=== PATIENT | female | born 1995 | race Caucasian/White ===

== ENCOUNTER 2017-02-26 09:39 | Inpatient (IN) | payer OTHER ==
[2017-02-26] MEDS ORDERED: Lactated Ringer's 1,000 ML IV SCH (10:15)
[2017-02-26] MEDS ORDERED: Penicillin G 5 Million Unit Vial IVPB ONE (10:15)
--- NOTE | 2017-02-26 10:22 | OBADHP ---
Datetime: 02/26/2017 10:15 Admit Comment, IP Provider: chief complaint-contractions HPI 22 y/o at 39.2 wga with c/o contractions since 6 am.Patient denies vaginal bleeding or lo ss of fluid course uncomplicated PMH denies PSH denies obgyn hx ; nvdx1 Social hx denies tobacco,alcohol or illicit drug use Exam see exam section A/P 22 y/o at 39.2 wga in labor.GBS neg. -admit -see prders Pelvic Type - PN: Adequate Extremities - PN: Normal Abdomen - PN: Normal Back - PN: Normal Lungs - PN: Normal Heart - PN: Normal Neurologic - PN: Normal General - PN: Normal Weight - Estimated: 3000 Presentation-Admit: Vertex Contraction Comments Provider: irregular Gestation - Est Wks by US: 39.2 IP Hx Assessment: The History has been Reviewed and is Current Vital Signs Provider: Reviewed; Within Normal Limits IP Chief Complaint: Uterine contractions FHR Category Provider Fetus A: Category I Dilatation, Provider: 10 Effacement, Provider: 100 Station, Provider: 0 Genitourinary Exam: Normal DTRs - PN: Normal EGA AdmitDate IP: 39.2 IP Adm Impression: Term, intrauterine ; Active labor IP Admit Plan: Admit to unit; Initiate labor protocol
[2017-02-26] MEDS ORDERED: Lidocaine 2% Inj (20ml) ONE (10:30)
[2017-02-26] MEDS ORDERED: Benzocaine/Menthol 20%-0.5% Topical Spray (60 ml) TOP PRN (10:36)
[2017-02-26 11:21] LABS: BASO % 0.3 % (0.0-2.0); EOS # 0.3 K/uL (0.0-0.7); EOS % 2.3 % (0.0-4.0); HEMOGLOBIN 13.9 g/dL (11.0-16.0); LYMPH # 2.7 K/uL (1.0-4.3); LYMPH % 21.3 % (20.0-40.0); MEAN CELL VOLUME 87.2 fL (81.0-99.0); MEAN CORPUSCULAR HEMOGLOBIN 28.8 pg (27.0-31.0); MEAN PLATELET VOLUME 8.8 fL (7.2-11.7); MONO # 0.6 K/uL (0.0-0.8); MONO % 4.7 % (0.0-10.0); NEUT % 71.4 % (50.0-75.0); RBC 4.82 Mil/uL (3.80-5.20); RED CELL DISTRIBUTION WIDTH 14.7 % (11.5-14.5); WHITE BLOOD COUNT 12.6 K/uL (4.8-10.8)
[2017-02-26 11:27] LABS: SQUAMOUS EPITHIAL 19 /hpf (0-5); URINE BACTERIA OCC (<OCC); URINE BILIRUBIN NEGATIVE (NEGATIVE); URINE BLOOD NEGATIVE (NEGATIVE); URINE CLARITY Hazy (Clear); URINE COLOR Yellow (YELLOW); URINE GLUCOSE (UA) NORMAL (Normal); URINE LEUKOCYTE ESTERASE 3+ Leu/uL (Negative); URINE NITRATE NEGATIVE (NEGATIVE); URINE PROTEIN NEGATIVE (NEGATIVE); URINE UROBILINOGEN NORMAL mg/dL (0.2-1.0)
--- NOTE | 2017-02-26 16:05 | OBDS ---
DELIVERY PERSONNEL Delivery Doctor: Homero Fisher MD Cloth Baler: Winsome Shoemaker RN MATERNAL INFORMATION Delivery Anesthesia: None Medications in Delivery: PITOCIN 20UNITS IN NS 1000 Estimated Blood Loss (ml): 300 Placenta Cultured: No Maternal Complications: None Provider Comments: Patient had srom .Thickmeconium noted.Patient started pushing.Peds called and pre sent for delivery.Median episiotomy done. of a female from direct OP position.Mouth and the nose suctioned.Body and shoulders delivered without difficulty.Cord clamped and cut.Cord blood colle cted.Placenta spontaneously delivered.Episiotomy repaired with 2-0 chromic.Fundus firm.Patient stable . Apgars 9/9 at 1 and 5 min of life EBL 300CC LABOR SUMMARY EDC: 03/03/2017 00:00 No. Babies in Womb: 1 Attempted: No Labor Anesthesia: None LABOR INFORMATION Reason for Induction: Not Applicable Onset of Labor: 02/26/2017 06:00 Complete Dilatation: 02/26/2017 10:04 Oxytocin: N/A Group B Beta Strep: Negative (Annotations: PER DR Homero FISHER OVER TELEPHONE.) Steroids Given: None Reason Steroids Not Administered: Not Applicable MEMBRANES Membranes Rupture Method: Spontaneous Rupture of Membranes: 02/26/2017 10:25 Length of Rupture (hrs): 0.17 Amniotic Fluid Color: Heavy Meconium Amniotic Fluid Amount: Moderate Amniotic Fluid Odor: Normal STAGES OF LABOR Stage 1 hrs: 4 Stage 1 min: 4 Stage 2 hrs: 0 Stage 2 min: 31 Stage 3 hrs: 0 Stage 3 min: 2 Total Time in Labor hrs: 4 Total Time in Labor min: 37 VAGINAL DELIVERY Episiotomy: Median Laceration Extension: N/A Laceration Type: None Laceration Repair: Yes Initial Vag Sponge Count: 10 Final Vag Sponge Count: 10 Initial Vag Sharps Count: 2 Final Vag Sharps Count: 2 Sponge Count Correct: Yes; Vaginal Sweep Performed Sharps Count Correct: Yes CSECTION DELIVERY Primary Indication: N/A Secondary Indication: N/A CSection Urgency: N/A CSection Incidence: N/A Labor: N/A Elective: N/A CSection Incision: N/A BABY A INFORMATION Delivery Date/Time: 02/26/2017 10:35 Method of Delivery: Vaginal Born in Route : No : N/A Forceps: N/A Vacuum Extraction: N/A Shoulder Dystocia : No SHOULDER DYSTOCIA BABY A Infant Delivery Date/Time: 02/26/2017 10:35 PRESENTATION/POSITION BABY A Presentation: Cephalic Cephalic Presentation: Vertex Vertex Position: direct OP PLACENTA INFORMATION BABY A Placenta Delivery Time : 02/26/2017 10:37 Placenta Method of Delivery: Spontaneous Placenta Status: Delivered SCORES BABY A Heart Rate 1 min: >100 bpm Resp Effort 1 min: Good Cry Reflex Irritability 1 min: Cough or Sneeze or Pulls Away Muscle Tone 1 min: Active Motion Color 1 min: Body [place], Extremities Blue SCORE 1 MIN: 9 Heart Rate 5 min: >100 bpm Resp Effort 5 min: Good Cry Reflex Irritability 5 min: Cough or Sneeze or Pulls Away Muscle Tone 5 min: Active Motion Color 5 min: Body [place], Extremities Blue SCORE 5 MIN: 9 INFORMATION BABY A Gestational Age at Delivery: 39.0 Gestational Status: Term Outcome : Liveborn Infant Condition : Stable Infant Sex: Female IDENTIFICATION/MEDS BABY A ID Band Number: [id number] ID Band Location: Left Leg; Left Arm Sensor Applied: Yes Sensor Number: [id number] Sensor Location : Cord Clamp Vitamin K Given : Aquamephyton 1 mg IM Erythromycin Given: Given Both Eyes WEIGHT/LENGTH BABY A Infant Birthweight (gms): 2905 Infant Weight (lb): 6 Infant Weight (oz): 6 Infant Length Inches: 19.00 Infant Length cms: 48.3 CORD INFORMATION BABY A No. Cord Vessels: 3 Nuchal Cord : N/A Nuchal Cord Other: N/A True Knot: 0 Cord Blood Taken: Yes Infant Suction: Mouth; Nose; Pharynx ASSESSMENT BABY A Complications: None Physical Findings at Delivery: Within Normal Limits Respirations: Appears Normal Director Of Retail Operations/ALS Called : No Infant Care By: DR IBARRA/ OLIVA Mccarthy RN. Transferred To: [facility]
--- NOTE | 2017-02-26 16:05 | OBDS ---
DELIVERY PERSONNEL Delivery Doctor: Homero Fisher MD Paediatric Surgeon: Winsome Shoemaker RN MATERNAL INFORMATION Delivery Anesthesia: None Medications in Delivery: PITOCIN 20UNITS IN NS 1000 Estimated Blood Loss (ml): 300 Placenta Cultured: No Maternal Complications: None Provider Comments: Patient had srom .Thickmeconium noted.Patient started pushing.Peds called and pre sent for delivery.Median episiotomy done. of a female from direct OP position.Mouth and the nose suctioned.Body and shoulders delivered without difficulty.Cord clamped and cut.Cord blood colle cted.Placenta spontaneously delivered.Episiotomy repaired with 2-0 chromic.Fundus firm.Patient stable . Apgars 9/9 at 1 and 5 min of life EBL 300CC LABOR SUMMARY EDC: 03/03/2017 00:00 No. Babies in Womb: 1 Attempted: No Labor Anesthesia: None LABOR INFORMATION Reason for Induction: Not Applicable Onset of Labor: 02/26/2017 06:00 Complete Dilatation: 02/26/2017 10:04 Oxytocin: N/A Group B Beta Strep: Negative (Annotations: PER DR Homero FISHER OVER TELEPHONE.) Group B Beta Strep: Negative Steroids Given: None Reason Steroids Not Administered: Not Applicable MEMBRANES Membranes Rupture Method: Spontaneous Rupture of Membranes: 02/26/2017 10:25 Rupture of Membranes: 02/26/2017 10:25 Length of Rupture (hrs): 0.17 Length of Rupture (hrs): 0.17 Amniotic Fluid Color: Heavy Meconium Amniotic Fluid Color: Heavy Meconium Amniotic Fluid Amount: Moderate Amniotic Fluid Amount: Moderate Amniotic Fluid Odor: Normal Amniotic Fluid Odor: Normal STAGES OF LABOR Stage 1 hrs: 4 Stage 1 min: 4 Stage 2 hrs: 0 Stage 2 min: 31 Stage 3 hrs: 0 Stage 3 min: 2 Total Time in Labor hrs: 4 Total Time in Labor min: 37 VAGINAL DELIVERY Episiotomy: Median Laceration Extension: N/A Laceration Type: None Laceration Repair: Yes Initial Vag Sponge Count: 10 Final Vag Sponge Count: 10 Initial Vag Sharps Count: 2 Final Vag Sharps Count: 2 Sponge Count Correct: Yes; Vaginal Sweep Performed Sharps Count Correct: Yes CSECTION DELIVERY Primary Indication: N/A Secondary Indication: N/A CSection Urgency: N/A CSection Incidence: N/A Labor: N/A Elective: N/A CSection Incision: N/A BABY A INFORMATION Infant Delivery Date/Time: 02/26/2017 10:35 Method of Delivery: Vaginal Born in Route : No : N/A Forceps: N/A Vacuum Extraction: N/A Shoulder Dystocia : No SHOULDER DYSTOCIA BABY A Infant Delivery Date/Time: 02/26/2017 10:35 PRESENTATION/POSITION BABY A Presentation: Cephalic Cephalic Presentation: Vertex Vertex Position: direct OP PLACENTA INFORMATION BABY A Placenta Delivery Time : 02/26/2017 10:37 Placenta Method of Delivery: Spontaneous Placenta Status: Delivered SCORES BABY A Heart Rate 1 min: >100 bpm Resp Effort 1 min: Good Cry Reflex Irritability 1 min: Cough or Sneeze or Pulls Away Muscle Tone 1 min: Active Motion Color 1 min: Body [place], Extremities Blue SCORE 1 MIN: 9 Heart Rate 5 min: >100 bpm Resp Effort 5 min: Good Cry Reflex Irritability 5 min: Cough or Sneeze or Pulls Away Muscle Tone 5 min: Active Motion Color 5 min: Body [place], Extremities Blue SCORE 5 MIN: 9 INFANT INFORMATION BABY A Gestational Age at Delivery: 39.0 Gestational Status: Term Outcome : Liveborn Infant Condition : Stable Infant Sex: Female IDENTIFICATION/MEDS BABY A ID Band Number: [id number] ID Band Location: Left Leg; Left Arm Sensor Applied: Yes Sensor Number: [id number] Sensor Location : Cord Clamp Vitamin K Given : Aquamephyton 1 mg IM Erythromycin Given: Given Both Eyes WEIGHT/LENGTH BABY A Birthweight (gms): 2905 Infant Weight (lb): 6 Infant Weight (oz): 6 Length Inches: 19.00 Infant Length cms: 48.3 CORD INFORMATION BABY A No. Cord Vessels: 3 Nuchal Cord : N/A Nuchal Cord Other: N/A True Knot: 0 Cord Blood Taken: Yes Infant Suction: Mouth; Nose; Pharynx ASSESSMENT BABY A Complications: None Physical Findings at Delivery: Within Normal Limits Respirations: Appears Normal Food Service Supervisor/ALS Called : No Care By: DR IBARRA/ OLIVA Mccarthy RN. Transferred To: Nursery
[2017-02-27] MEDS: Acetaminophen-Codeine 300/30 mg Tab PO PRN ×2 (05:38→23:43)
[2017-02-27 09:09] LABS: HEMOGLOBIN 12.5 g/dL (11.0-16.0); MEAN CELL VOLUME 86.9 fL (81.0-99.0); MEAN CORPUSCULAR HEMOGLOBIN 28.6 pg (27.0-31.0); MEAN CORPUSCULAR HGB CONC 32.9 g/dL (33.0-37.0); MEAN PLATELET VOLUME 8.9 fL (7.2-11.7); RBC 4.37 Mil/uL (3.80-5.20); RED CELL DISTRIBUTION WIDTH 14.9 % (11.5-14.5); WHITE BLOOD COUNT 12.6 K/uL (4.8-10.8)
--- NOTE | 2017-02-27 09:42 | OBPPN ---
Datetime: 02/27/2017 09:40 PP Pain Prov: Within normal limits PP Nausea Prov: Denies PP Flatus Prov: Yes PP BM Prov: No PP Breasts Prov: Normal PP Heart Prov: Normal PP Lungs Prov: Normal PP Abdomen/Uterus Prov: Normal PP Lochia Prov: Normal PP Vulva/Perineum Prov: Normal PP CVA Tenderness Prov: Normal PP Extremities Prov: Normal PP C/S Incision Prov: Not Applicable PP Progress Prov: Normal PP Comments Phys Exam Prov: GEN NAD, AA ox 3 BREAST: NT, NOn engorbed b/l CVS RRR, +S1/S2 RESP: CTAB/l ABD: sfot, NT/ND Fuduns: Firm, at level of umbilsk, moderate lochia, non foul smelling EXT: negative homans sing, negative calf tendenress PP Progress Note Prov: pt seen and eamined report pain controlled with medciaitn. pt ambuating, void ing, breast feeding, denies heavy bleeding, denies fevrs, chills, nasue, vomitign, CP, SOB vss pe see above a/p s/p PPD #1 doing well -f/u am labs -aoin managmnet -ecnoaurg bresat feeding/ambaution Vital Signs Provider PP: Reviewed; Within Normal Limits
[2017-02-27] MEDS: Multiple Vitamins Tab PO SCH (10:34)
--- NOTE | 2017-02-28 07:33 | OBPPN ---
Datetime: 02/28/2017 07:30 PP Pain Prov: Within normal limits PP Nausea Prov: Denies PP Flatus Prov: Yes PP BM Prov: Yes PP Breasts Prov: Normal PP Heart Prov: Normal PP Lungs Prov: Normal PP Abdomen/Uterus Prov: Normal PP Lochia Prov: Normal PP Vulva/Perineum Prov: Normal PP CVA Tenderness Prov: Normal PP Extremities Prov: Normal PP C/S Incision Prov: Not Applicable PP Progress Prov: Normal PP Comments Phys Exam Prov: GEN NAD, AA ox 3 BREAST: NT, NOn engorbed b/l CVS RRR, +S1/S2 RESP: CTAB/l ABD: sfot, NT/ND Fuduns: Firm, at level of umbilsk, moderate lochia, non foul smelling EXT: negative homans sing, negative calf tendenress PP Impression Prov: Normal progression PP Plan Prov: Continue present management; Discharge PP Progress Note Prov: pt seen and examined and reports pain is controlled with medication. pt is am bualting, voiding, breast feeding, denies heavy bleeding, denies fevrs, chills, nasue, vomiting, CP, SOB vss pe see above a/p s/p PPD #2 doing well, stable for discharge discharge home rto 6 week precautions given IP PP Procedures: None Vital Signs Provider PP: Reviewed; Within Normal Limits
--- NOTE | 2017-02-28 07:35 | OBDCSUM ---
Datetime: 02/28/2017 07:32 Discharged to, Provider: Home Follow up at, Provider: Dr Fisher Disch Instr Activity: Normal activity Disch Instr Diet: Regular Discharge Instructions, Provider: Routine instructions given Discharge Diagnosis, Provider: Term Delivered Discharge Time: 02/28/2017 07:32 Follow up in weeks, Provider: 6 weeks Disch Referrals: None Contraception discussed, Prov: Yes Disch Activity Restrictions: No sexual activity; Nothing in vagina - [place], tampons, douche Discharge Comment, Provider: rto 6 week precautions given if heavy bleeding, fever, chest pain, sob , not feelign well go to ER and call MD No sex, no douching, no tampons x 6 weeks Contraception after Delivery: Not Planning to Use
[2017-02-28] MEDS: Multiple Vitamins Tab PO SCH (09:34)
[2017-02-28 16:03] VITALS: BP 122/83; PULSE 60; RESP 20; TEMP 98.1; O2SAT 99
== END 2017-02-28 18:40 | disposition home or self-care (01) | DRG 775 ==
LOC: C.EROB 09:39 → C.4D 10:15 → C.4M 12:25
PROVIDERS: ADMIT Obstetrics & Gynecology; ATTEND Obstetrics & Gynecology
PROC: 0W8NXZZ Division of Female Perineum, External Approach (ICD-10-PCS; principal; 2017-02-26)
PROC: 10E0XZZ Delivery of Products of Conception, External Approach (ICD-10-PCS; 2017-02-26)
DX: O80 Encounter for full-term uncomplicated delivery (principal); Z3A.39 39 weeks gestation of pregnancy; Z37.0 Single live birth